=== PATIENT | female | born 1995 | race African-American/Black ===

== ENCOUNTER 2016-12-21 21:54 | Inpatient (IN) | payer OTHER ==
[~2016-12-21] VITALS: Ht 157.5 cm; Wt 70.0 kg
[2016-12-21] MEDS: DOCUSATE SODIUM 100 MG CAP PO SCH (21:00)
[~2016-12-21 21:54] MED LIST: TYLE325T5 PO; ZOFR20TA PO
[2016-12-21 22:09] VITALS: BP 126/90
[2016-12-21 23:26] VITALS: BP 136/85
[2016-12-21 23:48] VITALS: BP 136/85
[2016-12-22 00:11] VITALS: BP 136/85
[2016-12-22] MEDS ORDERED: METHYLERGONOVINE MALEATE 0.2 MG/ML VIAL (J2210) IM PRN (00:15)
[2016-12-22] MEDS ORDERED: ACETAMINOPHEN 500 MG TAB PO PRN (00:15)
[2016-12-22] MEDS ORDERED: PROMETHAZINE 25 MG TAB PO PRN (00:15)
[2016-12-22] MEDS ORDERED: MEASLES,MUMPS,RUBELLA VACCINE INJ (MMR-II) (90707) SC SCH (00:15)
[2016-12-22] MEDS ORDERED: OXYTOCIN INJ 10 UNITS/ML VIAL (J2590) IM ONE (00:15)
[2016-12-22] MEDS ORDERED: DIBUCAINE 1% OINTMENT 30GM TOP PRN (00:15)
[2016-12-22] MEDS ORDERED: RHOGAM 300 MCG (1500 IU) INJ (J2790) IM SCH (00:15)
[2016-12-22] MEDS ORDERED: ONDANSETRON 4MG/2ML VIAL (J2405) IV PRN (00:15)
[2016-12-22] MEDS: IBUPROFEN 800 MG TAB PO PRN ×2 (00:33→12:57)
[2016-12-22 00:41] LABS: MEAN CORPUSCULAR HEMOGLOBIN 28.1 pg (27.0-33.0); MEAN CORPUSCULAR VOLUME 85.1 fl (80.0-96.0); RED CELL DISTRIBUTION WIDTH 14.2 % (11.5-14.5); WHITE BLOOD COUNT 11.3 K/mm3 (4.0-10.0)
[2016-12-22 01:32] VITALS: BP 131/74
[2016-12-22 05:42] VITALS: BP 133/74
[2016-12-22] MEDS: PRENATAL VITAMINS CHEWABLE TABLET PO SCH (09:05)
[2016-12-22] MEDS: DOCUSATE SODIUM 100 MG CAP PO SCH ×2 (09:05→22:25)
[2016-12-22 18:01] VITALS: BP 100/57
[2016-12-23 05:37] VITALS: BP 111/58
[2016-12-23] MEDS: DOCUSATE SODIUM 100 MG CAP PO SCH (08:26)
[2016-12-23] MEDS: PRENATAL VITAMINS CHEWABLE TABLET PO SCH (08:26)
[2016-12-23] MEDS: IBUPROFEN 800 MG TAB PO PRN (10:38)
[2016-12-23] MEDS ORDERED: PRENTAB9 PO (15:04)
[2016-12-23] MEDS ORDERED: DIBU1OIN TOP (15:04)
[2016-12-23] MEDS ORDERED: IBUP-1114 PO (15:04)
[2016-12-23] MEDS ORDERED: COLA100C5 PO (15:04)
--- NOTE | 2016-12-23 16:06 | IPN ---
DATE: 12/21/2016 This and patient requested circumcision of their male . After discussing the medical and nonmedical indications, the penile block aftercare risks, and benefits expressed understanding and all signed and witnessed consent form. Await the clearance by the volunteer assistant. Mother was GBS positive, not treated in time. Baby will be here for 48 hours.
--- NOTE | 2016-12-23 21:37 | DSES ---
DATE OF ADMISSION: 12/21/2016 DATE OF DISCHARGE: 12/23/2016 HISTORY/HOSPITAL COURSE: This lady is a 21-year- old 4, para 2 now, admitted at 40 and 3/7 weeks of gestation in active labor. She was group B streptococcus (GBS) positive, not treated in time. She delivered a live male 6 pounds 15 ounces, 3154 grams, scores of 9 and 9 at one and five minutes respectively. We discussed phlebitis, cystitis, mastitis, metritis, cellulitis, diet, exercise, pain management, perineal, breast and wound care. Admitting hemoglobin 11.6, hematocrit 35.2, platelets are 236. DISCHARGE PHYSICAL EXAMINATION: Vital signs blood pressure 111/58, respirations 16, pulse 73 and temperature is 97.1. The rest of the examination is unremarkable. She is normocephalic, atraumatic. Neck full range of motion. Pupils equal and reactive to light. Distal pulses symmetric. No evidence of deep venous thrombosis (DVT), pulmonary embolism (PE) or superficial phlebitis. No wheezes or rhonchi. Chest is clear bilaterally at bases. Uterus is two below and nontender. Four quadrant bowel sounds are noted. Perineum is healing. No rashes, lesions, pruritus. No arthralgia or myalgia. No complaints of cough, wheezes, shortness of breath or dyspnea on exertion. No chest pain. No bleeding. Neuro complete. No incontinence, urgency or frequency. No nausea, vomiting, diarrhea or constipation. No diabetic issues. Past medical history, gynecologic history, and surgical history noncontributory. She does not smoke, drink or abuse drugs. She is and there is no domestic violence. In summary, we have a term gestation delivered a live male for discharge. Followup in the office in six weeks' time. Medications were given at discharge.
== END 2016-12-23 15:50 | disposition home or self-care (01) | DRG 775 ==
LOC: M LDO 21:54 → M LDI 23:15 → M OBS 12-22 01:29
PROVIDERS: ADMIT Obstetrics & Gynecology; ATTEND Obstetrics & Gynecology
PROC: 10E0XZZ Delivery of Products of Conception, External Approach (ICD-10-PCS; principal; 2016-12-21)
DX: O48.0 Post-term pregnancy (principal); O99.824 Streptococcus B carrier state complicating childbirth; Z3A.40 40 weeks gestation of pregnancy; O99.02 Anemia complicating childbirth; D64.9 Anemia, unspecified; Z37.0 Single live birth

== ENCOUNTER 2017-03-07 06:45 | Day surgery (SDC) | payer OTHER ==
[~2017-03-07] VITALS: Ht 157.5 cm; Wt 74.4 kg
[~2017-03-07 06:45] MED LIST changes: +COLA100C5 PO; +DIBU1OIN TOP; +IBUP-1114 PO; +PRENTAB9 PO
[2017-03-07] MEDS ORDERED: SODIUM CHLORIDE 0.9% 1000 ML IV ONE (07:00)
[2017-03-07] MEDS ORDERED: LIDOCAINE 1% MDV 20ML VIAL SC ONE (07:00)
[2017-03-07] MEDS ORDERED: ACETAMINOPHEN 650 MG SUPP PR ONE (07:00)
[2017-03-07] MEDS ORDERED: LR 1,000 ML IV ONE (07:00)
[2017-03-07 07:29] LABS: MEAN CORPUSCULAR HEMOGLOBIN 27.5 pg (27.0-33.0); MEAN CORPUSCULAR HGB CONC 32.8 g/dl (32.0-36.5); RED CELL DISTRIBUTION WIDTH 13.2 % (11.5-14.5); WHITE BLOOD COUNT 4.9 K/mm3 (4.0-10.0)
[2017-03-07 07:52] LABS: ANION GAP 7 MEQ/L (8-16); BLOOD UREA NITROGEN 14 MG/DL (7-18); CARBON DIOXIDE LEVEL 28 MEQ/L (21-32); CHLORIDE LEVEL 106 MEQ/L (98-107); CREATININE FOR GFR 0.62 MG/DL (0.55-1.02); GLOMERULAR FILTRATION RATE > 60.0 (>60); GLUCOSE, FASTING 84 MG/DL (70-105); HCG, SERUM QUANTITATIVE < 1.0 MIU/ML; POTASSIUM SERUM 4.3 MEQ/L (3.5-5.1); SODIUM LEVEL 141 MEQ/L (136-145)
[2017-03-07] MEDS ORDERED: ACETAMINOPHEN 650 MG SUPP As Ordered ONE (10:55)
[2017-03-07] MEDS ORDERED: BUPIVACAINE HCL 0.5% 10 ML VIAL As Ordered ONE (10:55)
[2017-03-07] MEDS ORDERED: PROPOFOL 200 MG/20 ML VIAL As Ordered ONE (11:16)
[2017-03-07] MEDS ORDERED: MIDAZOLAM INJ 2 MG/2 ML VIAL (J2250) As Ordered ONE (11:16)
[2017-03-07] MEDS ORDERED: LIDOCAINE 2% INJ 100 MG/5 ML SDV (FOR ANES.) As Ordered ONE (11:16)
[2017-03-07] MEDS ORDERED: ROCURONIUM BROMIDE 50 MG/5 ML VIAL/SYRINGE As Ordered ONE (11:16)
[2017-03-07] MEDS ORDERED: fentaNYL 100 MCG/2 ML INJECTION (J3010) As Ordered ONE ×2 (11:16→12:10)
[2017-03-07] MEDS ORDERED: GLYCOPYRROLATE INJ 0.2 MG/ML 2 ML VIAL As Ordered ONE (11:36)
[2017-03-07] MEDS ORDERED: KETOROLAC 60 MG/2 ML VIAL (J1885) As Ordered ONE (11:36)
[2017-03-07] MEDS ORDERED: ONDANSETRON 4MG/2ML VIAL (J2405) As Ordered ONE (11:36)
[2017-03-07] MEDS ORDERED: dexameTHASONE 4 MG/ML 1ML VIAL (J1100) As Ordered ONE (11:37)
[2017-03-07] MEDS ORDERED: ONDANSETRON 4MG/2ML VIAL (J2405) IV PRN (13:30)
[2017-03-07] MEDS ORDERED: fentaNYL 100 MCG/2 ML INJECTION (J3010) IV PRN (13:30)
[2017-03-07] MEDS ORDERED: PERCOCET 5MG/325MG TAB PO PRN (13:30)
[2017-03-07] MEDS ORDERED: HYDROmorphone HCL 1 MG/ML SYRINGE (J1170) IV PRN (13:30)
[2017-03-07] MEDS ORDERED: LR 1,000 ML IV SCH (13:30)
[2017-03-07 16:50] VITALS: BP 116/78
--- NOTE | 2017-03-17 05:19 | RO ---
DATE OF PROCEDURE: 03/07/2017 PREOPERATIVE DIAGNOSIS: Satisfied parity POSTOPERATIVE DIAGNOSIS: Satisfied parity OPERATION PROPOSED: Laparoscopic bilateral salpingectomy. OPERATION PERFORMED: Laparoscopic bilateral salpingectomy. SURGEON: Marky Lucas MD ACTUARIAL ASSISTANT: Christi Estrella MD ANESTHESIA: General, plus local anesthetic for intraperitoneal procedures. ESTIMATED BLOOD LOSS: 20 mL. DESCRIPTION OF PROCEDURE: After adequate anesthesia, prepped and draped in lithotomy position, Jensen catheter in the bladder draining clear urine, uterine elevator placed through the cervical canal. No evidence of cervical uterine prolapse. Sequentials on board. Acetaminophen suppository 1300 mg per rectum. Antibiotics not required. A small subumbilical incision was made, spread with a Didi, local anesthetic and direct entry with a 5 mm port. Then, inflated the abdomen with 3.9 liters of CO2 to flow rate of 14 to pressure of 15. Panoramic review, right upper quadrant was normal. Gallbladder was normal. Round ligaments were normal. Uterus was retroverted, retroflexed. We noticed that the tip of the elevator was through the fundus of the uterus because of the marked retroversion, retroflexion, but there was no evidence of active bleeding. The ovaries and tubes both sides were normal. Round ligament on the left side was normal. Cul-de-sac was clear. Bowel was clear. Left upper quadrant was clear. An 8 mm port was placed on the left side and using the Harmonic scalpel we elevated the right tube and removed the right tube and brought it out through the 8 mm scope. On the left side, we did a similar procedure, again using the scalpel and removing the tube right up to the cornua and it was removed out through the 8 mm scope. After this was done, we lavaged out the abdomen. No evidence of perforation, hemorrhage or bleeding. We then slowly removed the dilator under direct vision. There was a bit of bleeding from the fundus but not significant. We deflated to 6 mm pressure, again andre down the uterus. No evidence of active bleeding. The uterine elevator was totally removed at this time. With instrument and pad count correct, we deflated to 4 mm of pressure, removed the 8 mm port, then remove the mainstem port. We put subcuticular stitches in both areas, Marcaine 0.25%, 4 mL in each incisional site and skin tapes. We then went below and removed the Jensen catheter and the patient was sent to recovery in good condition.
== END 2017-03-07 17:43 | disposition home or self-care (01) ==
LOC: M SDC 06:45
PROVIDERS: ATTEND Obstetrics & Gynecology
DX: Z30.2 Encounter for sterilization (principal); K21.9 Gastro-esophageal reflux disease without esophagitis; L30.9 Dermatitis, unspecified; L70.9 Acne, unspecified
CPT/HCPCS: 36415; 58661; 80048; 84702; 85027; 88302; 96374; J1100; J1885; J2250; J2405; J3010

== ENCOUNTER → 2017-09-21 | Outpatient (REF) | payer OTHER ==
[2017-09-21 15:19] LABS: CHLAMYDIA DNA AMPLIFICATION NEGATIVE (NEGATIVE); GC DNA AMPLIFICATION NEGATIVE (NEGATIVE)
[2017-09-26 14:13] LABS: HPV HYBRID CAPTURE II Negative (Negative)
== END ==
LOC: M LAB REF 13:01
DX: Z12.4 Encounter for screening for malignant neoplasm of cervix (principal); A59.09 Other urogenital trichomoniasis
CPT/HCPCS: 87186